=== PATIENT | female | born 1975 | race African-American/Black ===

== ENCOUNTER 2021-07-04 09:33 | Emergency (ER) | payer SELFPAY ==
[~2021-07-04] VITALS: Ht 160 cm; Wt 145.5 kg
[2021-07-04 09:42] VITALS: TEMP 98.5
[2021-07-04] MEDS ORDERED: MOBIC 7.5MG7.5 MG PO (10:58)
[2021-07-04 11:41] VITALS: BP 159/68; PULSE 92
== END 2021-07-04 11:42 | disposition home or self-care (01) ==
LOC: COL.ER 09:33
DX: M25.512 Pain in left shoulder (principal); I10 Essential (primary) hypertension; E11.9 Type 2 diabetes mellitus without complications
CPT/HCPCS: J1885

== ENCOUNTER 2024-03-20 09:05 | Outpatient (RCR) | payer MEDICAID ==
[~2024-03-20 09:05] MED LIST: MOBIC 7.5MG7.5 MG PO
[2024-04-13] MEDS ORDERED: K-DUR20 MEQ PO (08:21)
[2024-04-13] MEDS ORDERED: HCTZ 25MG TAB25 MG PO (08:22)
[2024-04-13] MEDS ORDERED: OZEMPIC2 MG/0.75 SQ (08:23)
[2024-04-13] MEDS ORDERED: COZAAR100 MG PO (08:24)
[2024-04-13] MEDS ORDERED: ZYLOPRIM 100MG100 MG PO (10:28)
[2024-04-13] MEDS ORDERED: NORVASC 10MG10 MG PO (10:28)
[2024-04-13] MEDS ORDERED: GLUCOTROL XL5 MG/TAB PO (10:30)
[2024-04-13] MEDS ORDERED: LIPITOR 40MG TA40 MG PO (10:30)
[2024-04-13] MEDS ORDERED: LASIX 40MG TABL40 MG PO (10:30)
[2024-04-13] MEDS ORDERED: TOPROL XL 25MG25 MG PO (10:31)
[2024-04-13] MEDS ORDERED: PROTONIX 40MG T40 MG PO (10:33)
[2024-04-13] MEDS ORDERED: NICODERM C21 MG/PATC TD (10:33)
[2024-04-13] MEDS ORDERED: GLUCOPHAGE500 MG/TAB PO (10:34)
[2024-04-13] MEDS ORDERED: TOPAMAX50 MG PO (10:35)
[2024-04-13] MEDS ORDERED: XYZAL5 MG PO (10:36)
[2024-04-13] MEDS ORDERED: CYMBALTA 60MG60 MG PO (10:37)
[2024-04-13] MEDS ORDERED: 00186-0372-20 IH (10:39)
== END 2024-03-26 ==
LOC: WSPT
DX: M46.1 Sacroiliitis, not elsewhere classified (principal)

== ENCOUNTER 2024-04-17 11:15 | Outpatient (RCR) | payer MEDICAID ==
[~2024-04-17 11:15] MED LIST changes: +00186-0372-20 IH; +COZAAR100 MG PO; +CYMBALTA 60MG60 MG PO; +GLUCOPHAGE500 MG/TAB PO; +GLUCOTROL XL5 MG/TAB PO; +HCTZ 25MG TAB25 MG PO; +K-DUR20 MEQ PO; +LASIX 40MG TABL40 MG PO; +LIPITOR 40MG TA40 MG PO; +NICODERM C21 MG/PATC TD; +NORVASC 10MG10 MG PO; +OZEMPIC2 MG/0.75 SQ; +PROTONIX 40MG T40 MG PO; +TOPAMAX50 MG PO; +TOPROL XL 25MG25 MG PO; +XYZAL5 MG PO; +ZYLOPRIM 100MG100 MG PO
== END 2024-04-26 | disposition home or self-care (01) ==
LOC: WSPT
DX: M46.1 Sacroiliitis, not elsewhere classified (principal)

== ENCOUNTER 2024-05-24 14:15 | Outpatient (RCR) | payer MEDICAID | END 2024-05-27 | disposition home or self-care (01) | LOC: WSPT | DX: M46.1 Sacroiliitis, not elsewhere classified (principal) ==